=== PATIENT | female | born 1930 | race Caucasian/White ===

== ENCOUNTER 2018-03-19 02:57 | Inpatient (IN) | payer MEDICARE ==
[2018-03-19 03:04] VITALS: BMI 21.9
[2018-03-19 03:27] LABS: BASO # 0.06 K/mm3 (0.0-2.0); BASO % 0.7 % (0.0-3.0); EOS # 0.3 (0.0-0.7); EOS % 3.3 % (1.5-5.0); GRAN # 5.33 (1.4-6.5); GRAN % 64.8 % (50.0-68.0); HEMOGLOBIN 12.4 g/dL (12.0-16.0); LYMPH # 1.8 (1.2-3.4); LYMPH % 21.3 % (22.0-35.0); MEAN CELL VOLUME 80.9 fl (80.0-105.0); MEAN CORPUSCULAR HEMOGLOBIN 26.6 pg (25.0-35.0); MEAN CORPUSCULAR HGB CONC 32.9 g/dl (31.0-37.0); MONO # 0.8 (0.1-0.6); MONO % 9.9 % (1.0-6.0); RBC 4.66 10^6/uL (3.5-6.1); WHITE BLOOD COUNT 8.2 10^3/ul (4.5-11.0)
--- NOTE | 2018-03-19 03:29 | ED PDOC ---
Arrival/HPI - General Chief Complaint: Shortness Of Breath Time Seen by Provider: 03/19/18 03:04 Historian: Patient, Family - History of Present Illness Narrative History of Present Illness (Text): 03/19/18 03:12 Nan Calix is an 88 year old female, whose past medical history includes diabetes, hypercholesterolemia, hysterectomy and bladder suspension, who presents to the Emergency Department complaining of shortness of breath which woke her up tonight. Patient notes some improvement with oxygen. Patient reports she underwent a stress test with abnormal findings suggestive of cardiomyopathy. Patient denies nausea, vomiting, diarrhea, weakness/numbness/ tingling, or any other complaints. Sr. Consultant: Dr. Mason Time/Duration: Prior to Arrival Symptom Onset: Other (intermittent for 1 month) Symptom Course: Improving (from Oxygen) Activities at Onset: Rest Context: Home Past Medical History - Provider Review Nursing Documentation Reviewed: Yes - Travel History Have you recently traveled outside [place] w/in the past 3 mons?: No - Cardiac Hx NE: No - Neurological HX Cerebrovascular Accident: No Hx Transient Ischemic Attacks (TIA): No - HEENT Hx HEENT Disorder: Yes Hx Cataracts: Yes (RAMIRO. REMOVED) Hx Glaucoma: Yes - Endocrine/Metabolic Hx Endocrine Disorders: Yes Hx Diabetes Mellitus Type 2: Yes - Hematological/Oncological Hx Blood Transfusions: No - Musculoskeletal/Rheumatological Hx Musculoskeletal Disorders: Yes Hx Back Pain: Yes Hx Falls: No Hx Fractures: No Hx Osteoarthritis: Yes (HIPS AND LOW BACK) Hx Osteoporosis: Yes Hx Unsteady Gait: No - Gastrointestinal Hx Gastrointestinal Disorders: Yes Hx Gastroesophageal Reflux: Yes - Surgical History Hx Cataract Extraction: Yes (RAMIRO.) Hx Eye Surgery: Yes Hx Hysterectomy: Yes (ESTEBAN) Other/Comment: BLADDER PROLAPSE REPAIR - Anesthesia Hx Anesthesia: Yes Hx Anesthesia Reactions: No Hx Malignant Hyperthermia: No Family/Social History - Physician Review Nursing Documentation Reviewed: Yes Family/Social History: Unknown Family HX Smoking Status: Former Smoker Allergies/Home Meds Allergies/Adverse Reactions: Allergies No Known Allergies Allergy (Verified 08/12/16 06:52) Home Medications: Home Meds Medication Instructions Recorded Confirmed Glipizide [Glipizide ER] 5 mg PO DAILY 06/03/16 08/12/16 Omeprazole 20 mg PO DAILY 06/03/16 08/12/16 Simvastatin [Zocor] 20 mg PO DAILY 06/03/16 08/12/16 Timolol 0.5% Ophth [Timoptic 0.5% 1 drop OS BID 06/03/16 08/12/16 Ophth Soln] metFORMIN [glucOPHAGE] 500 mg PO BID 06/03/16 08/12/16 Aspirin/Caffeine [Anacin 400-32 mg 1 tab PO DAILY PRN 08/12/16 08/12/16 Tablet] Multivit-Min/Iron/Folic/Lutein 1 tab PO DAILY 08/12/16 08/12/16 [Centrum Silver Women Tablet] Review of Systems - Physician Review All systems were reviewed & negative as marked: Yes - Review of Systems Constitutional: Normal Eyes: Normal ENT: Normal Respiratory: SOB. absent: Normal Cardiovascular: absent: Chest Pain Gastrointestinal: Normal. absent: Nausea, Vomiting Musculoskeletal: Normal Skin: Normal Neurological: Normal Endocrine: Normal Physical Exam Vital Signs Reviewed: Yes Vital Signs Temp Pulse Resp BP Pulse Ox 03/19/18 05:28 87 18 131/74 100 03/19/18 04:04 138/80 03/19/18 03:15 20 03/19/18 03:09 97.8 F 89 20 138/80 95 Temperature: Afebrile Blood Pressure: Normal Pulse: Regular Respiratory Rate: Normal Appearance: Positive for: Well-Appearing, Non-Toxic Pain Distress: Mild Mental Status: Positive for: Alert and Oriented X 3 - Systems Exam Head: Present: Atraumatic, Normocephalic Pupils: Present: PERRL Extroacular Muscles: Present: EOMI Conjunctiva: Present: Normal Mouth: Present: Moist Mucous Membranes Respiratory/Chest: Present: Rales (at the bases) Cardiovascular: Present: Regular Rate and Rhythm, Normal S1, S2. No: Murmurs Upper Extremity: Present: Normal Inspection. No: Cyanosis, Edema Lower Extremity: Present: Normal Inspection. No: Edema Neurological: Present: GCS=15, CN II-XII Intact, Speech Normal Skin: Present: Warm, Dry, Normal Color. No: Rashes Psychiatric: Present: Alert, Oriented x 3, Normal Insight, Normal Concentration Medical Decision Making ED Course and Treatment: 03/19/18 03:12 Impression: Nan Calix is an 88 year old female who presents to the Emergency Department for shortness of breath. Plan: -- Labs -- EKG -- BNP -- X-Ray of Chest -- Lasix -- Reassess and disposition Prior Visits: Notes and results from previous visits were reviewed. Progress Notes: EKG reviewed and shows: Normal Sinus Rhythm at 87 bpm. left axis deviation, left bundle branch block. 03/19/18 03:35 Chest X-Ray reviewed, shows mild congestive heart failure. 03/19/18 05:09 Case discussed with medical insurance coding specialist information systems specialist, who is aware and agrees with plan. 03/19/18 05:[address] Leary, who is aware and agrees with plan. Accepts patient into hospital service. Patient will go to telemetry observation for congestive heart failure. - Lab Interpretations Lab Results: 03/19/18 03:10 03/19/18 03:55 Lab Results 03/19/18 03:55: Sodium 143, Chloride 107, Potassium 3.9, Carbon Dioxide 23, Anion Gap 17, BUN 13, Creatinine 0.8, Est GFR ( Amer) > 60, Est GFR (Non- Af Amer) > 60, Random Glucose 181 H, Calcium 9.4, Magnesium 1.9, Total Bilirubin 1.5 H, AST 33, ALT 19, Alkaline Phosphatase 56, Lactate Dehydrogenase 587, Total Creatine Kinase 66, Troponin I 0.03, NT-Pro-B Natriuret Pep 66127 H, Total Protein 7.7, Albumin 3.9, Globulin 3.8, Albumin/Globulin Ratio 1.0 L 03/19/18 03:55: pO2 25 L, VBG pH 7.35, VBG pCO2 44.0, VBG HCO3 24.3, VBG Total CO2 25.7, VBG O2 Sat (Calc) 45.5, VBG Base Excess -1.5 L, VBG Potassium 3.7, Sodium 140.0, Chloride 107.0, Glucose 192 H, Lactate 1.7, FiO2 21.0, Venous Blood Potassium 3.7 03/19/18 03:55: PT 13.8 H, INR 1.21 H, APTT 30.1 03/19/18 03:10: WBC 8.2, RBC 4.66, Hgb 12.4, Hct 37.7, MCV 80.9, MCH 26.6, MCHC 32.9, RDW 16.0 H, Plt Count 229, MPV 11.0, Gran % 64.8, Lymph % (Auto) 21.3 L, Mcdonough % (Auto) 9.9 H, Eos % (Auto) 3.3, Baso % (Auto) 0.7, Gran # 5.33, Lymph # ( Auto) 1.8, Mcdonough # (Auto) 0.8 H, Eos # (Auto) 0.3, Baso # (Auto) 0.06 I have reviewed the lab results: Yes - RAD Interpretation Radiology Orders: 03/19/18 03:16 CHEST PORTABLE [RAD] Stat Needle Valve Operator: ED Physician - EKG Interpretation Interpreted by ED Physician: Yes Type: 12 lead EKG - Medication Orders Current Medication Orders: Discontinued Medications Furosemide (Lasix) 20 mg IVP ONCE ONE Stop: 03/19/18 03:34 Last Admin: 03/19/18 04:04 Dose: 20 mg MAR Blood Pressure Document 03/19/18 04:04 JOL (Rec: 03/19/18 04:04 [id number] Blood Pressure Blood Pressure (100/60-150/90) 138/80 IVP Administration Document 03/19/18 04:04 JOL (Rec: 03/19/18 04:04 JO [id number]) Charges for Administration # of IVP Administrations 1 - Scribe Statement The provider has reviewed the documentation as recorded by the Scribe Linda Rosales, under the training of Kenyatta Marion. All medical record entries made by the Scribe were at my direction and personally dictated by me. I have reviewed the chart and agree that the record accurately reflects my personal performance of the history, physical exam, medical decision making, and the department course for this patient. I have also personally directed, reviewed, and agree with the discharge instructions and disposition. Disposition/Present on Arrival - Present on Arrival Any Indicators Present on Arrival: No History of DVT/PE: No History of Uncontrolled Diabetes: No Urinary Catheter: No History of Decub. Ulcer: No History Surgical Site Infection Following: None - Disposition Have Diagnosis and Disposition been Completed?: Yes Diagnosis: Congestive heart failure (CHF) Disposition: HOSPITALIZED Disposition Time: 05:00 Condition: FAIR
[2018-03-19 04:04] LABS: VENOUS BLOOD GAS BASE EXCESS -1.5 mmol/L (0.0-2.0); VENOUS BLOOD GAS PO2 25 mm/Hg (30-55); VENOUS BLOOD PH 7.35 (7.32-7.43)
[2018-03-19 04:17] LABS: INR 1.21 (0.93-1.08); PROTHROMBIN TIME 13.8 SECONDS (9.4-12.5)
[2018-03-19 04:18] LABS: PARTIAL THROMBOPLASTIN TIME 30.1 Seconds (25.1-36.5)
[2018-03-19 05:05] LABS: ALBUMIN 3.9 g/dL (3.0-4.8); ALT/SGPT 19 U/L (7-56); AST/SGOT 33 U/L (14-36); BLOOD UREA NITROGEN 13 mg/dL (7-21); CALCIUM 9.4 mg/dL (8.4-10.5); GFR AFRICAN-AMERICAN > 60; GFR NON-AFRICAN AMERICAN > 60
[2018-03-19 05:33] LABS: B-TYPE NATRIURETIC PEPTIDE 10300 pg/mL (0-450); TROPONIN I 0.03 ng/mL
[2018-03-19 07:17] LABS: HDL CHOLESTEROL 46 mg/dL (29-60)
--- NOTE | 2018-03-19 07:19 | RAD ---
Date of service: 03/19/2018 HISTORY: sob COMPARISON: 03/18/2018 FINDINGS: LUNGS: No active pulmonary disease. PLEURA: No significant pleural effusion identified, no pneumothorax apparent. CARDIOVASCULAR: Moderate cardiomegaly. Moderate vascular congestion OSSEOUS STRUCTURES: No significant abnormalities. VISUALIZED UPPER ABDOMEN: Normal. OTHER FINDINGS: None. IMPRESSION: Moderate cardiomegaly and moderate vascular congestion
[2018-03-19 07:28] LABS: LDL CHOLESTEROL 97 mg/dL (0-129)
[2018-03-19] MEDS: Insulin Reg-LOW-Coverage SC SCH ×4 (08:35→22:49)
--- NOTE | 2018-03-19 09:38 | CP.PCM.HP ---
History of Present Illness - History of Present Illness History of Present Illness: 88 F w/ PMH DM, HLD, presents to [facility] ED on 03/19 AM w/ CC of SOB. Pt. reported she had a echo /stress test on 03/18 day and came into ED this AM because she was awoken from her sleep w/ shortness of breath. Of note preliminary report of echo shows EF of 13.8%. Pt. reports that these episodes have been occurring over the past 2-3 months, however today the episode was the worst that it's been. She says that over the past months she has also been having worsening PERKINS and has seen a reduction in ability to perform ADLs due to worsening symptoms. Pt denies any new onset lower extremity edema, sleeping in an elevated position , denies any weight gain. She does report some palpitations however describes it further as a racing sensation. Upon further ROS denies any NAVAS, BV, Cough, Abd pain, N/V/D, Urinary changes, LE numbness/ tingling, weakness. Remainder of 12 system ROS otherwise negative. PMD: Dr. Chaves, J Pharm: Serge Whitehead PMH: as above PSH: Appendectomy Social: Denies EtOH, Denies Tobacco, Denies Illicit, Lives w/ daughter and ambulates well Home Rx: Metformin, Zocor, Omeprazole, Glipizide, In ED: CBC nl CMP wnl CXR - Moderate cardiomegaly; Moderate vascular congestion BMP 10,000 Troponin negative EKG: NSR w/ Laxis deviation + LBBB Given x1 Lasix 20mg IVP Present on Admission - Present on Admission Any Indicators Present on Admission: No Review of Systems - Constitutional Constitutional: As Per HPI - EENT Eyes: As Per HPI - Cardiovascular Cardiovascular: As Per HPI - Respiratory Respiratory: As Per HPI - Gastrointestinal Gastrointestinal: As Per HPI - Genitourinary Genitourinary: As Per HPI - Musculoskeletal Musculoskeletal: As Per HPI - Integumentary Integumentary: As Per HPI - Neurological Neurological: As Per HPI - Psychiatric Psychiatric: As Per HPI - Endocrine Endocrine: As Per HPI - Hematologic/Lymphatic Hematologic: As Per HPI Past Patient History - Past Medical History & Family History Past Medical History?: Yes - Past Social History Smoking Status: Former Smoker - CARDIAC Hx Heart Attack: No - NEUROLOGICAL HX Cerebrovascular Accident: No Hx Transient Ischemic Attacks (TIA): No - HEENT Hx HEENT Problems: Yes Hx Cataracts: Yes (RAMIRO. REMOVED) Hx Glaucoma: Yes - ENDOCRINE/METABOLIC Hx Endocrine Disorders: Yes Hx Diabetes Mellitus Type 2: Yes - HEMATOLOGICAL/ONCOLOGICAL Hx Blood Transfusions: No - MUSCULOSKELETAL/RHEUMATOLOGICAL Hx Musculoskeletal Disorders: Yes Hx Back Pain: Yes Hx Falls: No Hx Fractures: No Hx Osteoarthritis: Yes (HIPS AND LOW BACK) Hx Osteoporosis: Yes Hx Unsteady Gait: No - GASTROINTESTINAL Hx Gastrointestinal Disorders: Yes Hx Gastroesophageal Reflux: Yes - PSYCHIATRIC Hx Substance Use: No - SURGICAL HISTORY Hx Cataract Extraction: Yes (RAMIRO.) Hx Eye Surgery: Yes Hx Hysterectomy: Yes (ESTEBAN) Other/Comment: BLADDER PROLAPSE REPAIR - ANESTHESIA Hx Anesthesia: Yes Hx Anesthesia Reactions: No Hx Malignant Hyperthermia: No Meds Allergies/Adverse Reactions: Allergies Allergy/AdvReac Type Severity Reaction Status Date / Time No Known Allergies Allergy Verified 08/12/16 06:52 Physical Exam - Constitutional Appears: Well, Non-toxic, No Acute Distress - Head Exam Head Exam: ATRAUMATIC, NORMOCEPHALIC - Eye Exam Eye Exam: EOMI, Normal appearance, PERRL - ENT Exam ENT Exam: Mucous Membranes Moist, Normal Exam - Neck Exam Additional comments: No carotid bruit - Respiratory Exam Respiratory Exam: absent: Wheezes, Respiratory Distress Additional comments: Crackles appreciated Bibasilar - Cardiovascular Exam Cardiovascular Exam: RRR, +S1, +S2. absent: Systolic Murmur - GI/Abdominal Exam GI & Abdominal Exam: Normal Bowel Sounds, Soft. absent: Tenderness - Extremities Exam Extremities exam: Positive for: pedal pulses present (2+ TP/DP) - Back Exam Back exam: absent: CVA tenderness (L), CVA tenderness (R) - Neurological Exam Neurological exam: Alert, CN II-XII Intact, Oriented x3 - Psychiatric Exam Psychiatric exam: Normal Affect, Normal Mood - Skin Skin Exam: Dry, Intact, Warm Results - Vital Signs Recent Vital Signs: Last Vital Signs Temp 98.3 F 03/19/18 06:07 Pulse 80 03/19/18 06:07 Resp 20 03/19/18 06:07 BP 142/85 03/19/18 06:07 Pulse Ox 100 03/19/18 05:28 - Labs Result Diagrams: 03/19/18 03:10 03/19/18 03:55 Assessment & Plan - Assessment and Plan (Free Text) Assessment: 88 F w/ PMH DM, HLD, preliminary findings HFrEF 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 SOB 2/2 CHF Exacerbation BMP 10,000; Echo w/ preliminary reading of 13.8%; Started patient on lisinopril 5mg QD Started Lasix 5mg PO QD Monitor IO/ Daily weight Limited salt diet; Fluid restriction 1.5L Cardiology - Dr. Mason - Consulted Telemonitoring HLD Continue Home Simvastatin Lipid panel wnl DM: ISS Regular Accucheck Q6 A1C pending Pt seen, and case discussed w/ attending physician Dr. Leary at length; Sanchez Interiano DO PGY1 Internal Medicine [employer] Systems Operator - Date & Time Date: 03/19/18 Time: 10:27
--- NOTE | 2018-03-19 09:39 | CARD ---
APPROVED REPORT Date of service: 03/19/2018 EKG Measurement Heart [id number] <Conclusion> Normal sinus rhythm Possible Left atrial enlargement Left axis deviation Left bundle branch block Abnormal ECG
[2018-03-19] MEDS: Milrinone 20mg/100ml D5W 100 ML IV PRN (10:41)
--- NOTE | 2018-03-19 12:18 | CON ---
DATE: 03/19/2018 HISTORY: The patient is an 88-year-old woman who presents with sudden onset of shortness of breath. PAST MEDICAL HISTORY: The patient's past medical history includes diabetes mellitus, hypercholesterolemia. She underwent recent cardiac workup which included an abnormal stress test with a documented ejection fraction of 10%. The patient denies angina, but admits to shortness of breath. No edema in the lower extremities. SOCIAL HISTORY: The patient does not smoke. REVIEW OF SYSTEMS: A 14-point review of systems is reviewed. Positive exertional shortness of breath. No angina, negative edema. Positive orthopnea. Positive PND. No previous myocardial infarction noted. PHYSICAL EXAMINATION: VITAL SIGNS: Blood pressure is 142/85, heart rates in the 80s. NECK: Negative JVD. LUNGS: Decreased breath sounds with crackles. HEART: Reveal S1, S2. EXTREMITIES: Without edema. EKG shows no changes from her previous. Hemoglobin is 12.4. ProBNP is greater than 10,000, troponin is 0.03, BUN and creatinine are unremarkable with glucose of 181. IMPRESSION 1. Acute systolic congestive heart failure. 2. End-stage dilated cardiomyopathy. 3. Diabetes mellitus. 4. Hypercholesterolemia. 5. Dyspnea. Given these findings, we will give her IV Lasix. In addition, we will add intravenous milrinone to her regimen to improve her symptoms as well as her forwarded cardiac output. Malcolm Mason MD
[2018-03-20] MEDS: Milrinone 20mg/100ml D5W 100 ML IV PRN (01:06)
[2018-03-20 06:55] LABS: BASO # 0.04 K/mm3 (0.0-2.0); BASO % 0.5 % (0.0-3.0); EOS # 0.4 (0.0-0.7); EOS % 4.6 % (1.5-5.0); GRAN # 5.16 (1.4-6.5); GRAN % 62.6 % (50.0-68.0); HEMOGLOBIN 11.7 g/dL (12.0-16.0); LYMPH # 1.8 (1.2-3.4); LYMPH % 21.8 % (22.0-35.0); MEAN CELL VOLUME 81.7 fl (80.0-105.0); MEAN CORPUSCULAR HEMOGLOBIN 26.2 pg (25.0-35.0); MEAN CORPUSCULAR HGB CONC 32.1 g/dl (31.0-37.0); MEAN PLATELET VOLUME 10.2 fl (7.0-11.0); MONO # 0.9 (0.1-0.6); MONO % 10.5 % (1.0-6.0); RBC 4.47 10^6/uL (3.5-6.1); WHITE BLOOD COUNT 8.3 10^3/ul (4.5-11.0)
[2018-03-20 07:05] LABS: ALB/GLOB RATIO 1.1 (1.1-1.8); ALBUMIN 3.6 g/dL (3.0-4.8); ALT/SGPT 24 U/L (7-56); AST/SGOT 27 U/L (14-36); BLOOD UREA NITROGEN 19 mg/dL (7-21); CALCIUM 9.4 mg/dL (8.4-10.5); GFR AFRICAN-AMERICAN > 60; GFR NON-AFRICAN AMERICAN 59
[2018-03-20] MEDS: Insulin Reg-LOW-Coverage SC SCH ×4 (08:05→21:27)
[2018-03-20] MEDS: Potassium Chloride 40 mEq/30 ml LIQ UD PO SCH ×3 (08:09→16:44)
[2018-03-20] MEDS ORDERED: Magnesium Oxide 400 mg Tab UD PO ONE (10:29)
--- NOTE | 2018-03-20 10:52 | PN ---
DATE: 03/20/2018 CARDIOLOGY FOLLOWUP FOLLOWUP: The patient's breathing is much improved on IV milrinone. PHYSICAL EXAMINATION: VITAL SIGNS: Blood pressure is 103/57, heart rate is in the 80s. NECK: Negative JVD. LUNGS: Without rales. HEART: Reveals S1, S2. EXTREMITIES: Without edema. LABORATORY DATA: Hemoglobin is 11.7. Chemistries: BUN and creatinine are normal. Potassium is 3.3, which has been replaced. The glucose is 134. IMPRESSION: 1. Resolution of congestive heart failure. 2. Severe dilated cardiomyopathy. 3. Abnormal stress test. 4. Diabetes mellitus. 5. Hypercholesterolemia. 6. Resolution of dyspnea. PLAN: Given these findings, we will discontinue her milrinone. We will change the medications to p.o. medications. From a cardiac perspective, the patient can be discharged. We will bring her back early next week for an outpatient catheterization to evaluate her coronary arteries with potential plans for a defibrillator placement. Malcolm Mason MD
--- NOTE | 2018-03-20 17:22 | CP.PCM.PN ---
<Eleno Lewis - Last Filed: 03/20/18 21:40> Subjective - Date & Time of Evaluation Date of Evaluation: 03/20/18 Time of Evaluation: 06:10 - Subjective Subjective: Eleno Lewis PGY-1 Progress Note for Hospitalist Service Patient seen and examined at bedside. Denies any acute events overnight. Patient denies CP, palpitations, SOB. Patient experienced a few beats of SVT per telemetry but patient remained asymptomatic at that time. Objective - Vital Signs/Intake and Output Vital Signs (last 24 hours): Temp Pulse Resp BP Pulse Ox 98.2 F 84 18 118/65 96 03/20/18 12:00 03/20/18 12:00 03/20/18 12:00 03/20/18 12:00 03/20/18 09:00 Intake and Output: 03/20/18 03/20/18 06:59 18:59 Intake Total 340 Balance 340 - Medications Medications: Current Medications Aspirin (Aspirin Chewable) 81 mg PO DAILY [facility] Last Admin: 03/20/18 11:30 Dose: 81 mg Atorvastatin Calcium (Lipitor) 10 mg PO DIN [facility] Last Admin: 03/20/18 16:44 Dose: 10 mg Docusate Sodium (Colace) 100 mg PO DAILY [facility] Last Admin: 03/20/18 11:30 Dose: 100 mg Furosemide (Lasix) 20 mg PO DAILY [facility] Last Admin: 03/20/18 10:27 Dose: Not Given Insulin Human Regular (Humulin R Low) 0 units SC [facility] PRN Reason: Protocol Last Admin: 03/20/18 16:53 Dose: Not Given Lisinopril (Zestril) 5 mg PO DAILY [facility] Last Admin: 03/20/18 09:22 Dose: 5 mg - Labs Labs: 03/20/18 06:30 03/20/18 05:20 PT 13.8 SECONDS (9.4-12.5) H 03/19/18 03:55 INR 1.21 (0.93-1.08) H 03/19/18 03:55 APTT 30.1 Seconds (25.1-36.5) 03/19/18 03:55 - Constitutional Appears: Well, No Acute Distress - Head Exam Head Exam: ATRAUMATIC, NORMOCEPHALIC - Eye Exam Eye Exam: EOMI, Normal appearance Pupil Exam: NORMAL ACCOMODATION, PERRL - ENT Exam ENT Exam: Mucous Membranes Moist - Neck Exam Neck Exam: Normal Inspection - Respiratory Exam Additional comments: minor LLQ crackles - Cardiovascular Exam Cardiovascular Exam: RRR, +S1, +S2 - GI/Abdominal Exam GI & Abdominal Exam: Soft, Normal Bowel Sounds. absent: Guarding, Tenderness - Neurological Exam Neurological Exam: Alert, Awake, Normal Gait, Oriented x3 - Psychiatric Exam Psychiatric exam: Normal Affect, Normal Mood - Skin Skin Exam: Dry, Normal Color, Warm Assessment and Plan - Assessment and Plan (Free Text) Assessment: Ms. Calix is a 88 year old F w/ PMH of DM, HLD, HFrEF w/ EF 13% who presented yesterday with shortness of breath and weakness. SOB 2/2 CHF Exacerbation BMP >10,000; Echo shows EF of 13% Started patient on lisinopril 5mg QD Monitor I/O/ Daily weight to monitor for CHF exacerbation clinical signs Limited salt diet; Fluid restriction IV Milrinone discontinued. Lasix 20 mg PO Cardiology - Dr. Mason - Consulted. Recommended to start PO medications in preparation for discharge. cardio will consider outpatient cath. with potential defibrillator placement - no longer on telemetry continue ASA - f/u CBC in AM Hypokalemia - 3.3 on CMP today - repleted with KCl 40 mEq. Will evaluate with f/u CMP in AM Constipation Patient denies BM in last few days. Began on colace 100. will monitor HLD Continue Home Simvastatin DM: ISS Regular Accucheck Q6 A1C pending Disposition: PT, OT, and SW consults in place for unsteady gait and placement. Discussed with case management. Will remain on med-surg floors due to unsteady gait and will re-evaluate tomorrow. Patient seen, case reviewed, and plan agreed upon with Dr. Renetta Nevarez. Eleno Lewis, PGY-1 <Layo Nevarez - Last Filed: 03/21/18 07:54> Objective - Vital Signs/Intake and Output Vital Signs (last 24 hours): Temp Pulse Resp BP Pulse Ox 98.9 F 81 19 106/64 96 03/20/18 17:33 03/20/18 17:33 03/20/18 17:33 03/20/18 17:33 03/20/18 17:33 - Medications Medications: Current Medications Aspirin (Aspirin Chewable) 81 mg PO DAILY [facility] Last Admin: 03/20/18 11:30 Dose: 81 mg Atorvastatin Calcium (Lipitor) 10 mg PO DIN [facility] Last Admin: 03/20/18 16:44 Dose: 10 mg Docusate Sodium (Colace) 100 mg PO DAILY [facility] Last Admin: 03/20/18 11:30 Dose: 100 mg Furosemide (Lasix) 20 mg PO DAILY [facility] Last Admin: 03/20/18 10:27 Dose: Not Given Insulin Human Regular (Humulin R Low) 0 units SC [facility] PRN Reason: Protocol Last Admin: 03/20/18 21:27 Dose: Not Given Lisinopril (Zestril) 5 mg PO DAILY [facility] Last Admin: 03/20/18 09:22 Dose: 5 mg - Labs Labs: 03/20/18 06:30 03/20/18 05:20 PT 13.8 SECONDS (9.4-12.5) H 03/19/18 03:55 INR 1.21 (0.93-1.08) H 03/19/18 03:55 APTT 30.1 Seconds (25.1-36.5) 03/19/18 03:55 Attending/Attestation - Attestation I have personally seen and examined this patient.: Yes I have fully participated in the care of the patient.: Yes I have reviewed all pertinent clinical information, including history, physical exam and plan: Yes Notes (Text): 03/20/18 88 year old female with past medical history of diabetes and dyslipidemia who presented with complaint of shortness of breath. She had a recent outpatient stress test / echo which showed cardiomyopathy with EF of 13%. CXR showed moderate congestion. Patient was started on iv lasix and milrinone drip with improvement of symptoms. She is also on lisinopril. Cardiology is following and switched lasix to po. Milrinone drip is discontinued. Cardiology recommended elective cardiac cath next week. Will replete and repeat lytes (potassium). PT evaluation was appreciated who recommended TCU. However patient and family have refused TCU. Will request PT followup with possible plan to d/c home with services in the weekend if her gait instability improves. Layo Nevarez MD Hospitalist.
[2018-03-21 08:21] LABS: HEMOGLOBIN 12.6 g/dL (12.0-16.0); MEAN CELL VOLUME 83.4 fl (80.0-105.0); MEAN CORPUSCULAR HEMOGLOBIN 26.8 pg (25.0-35.0); RBC 4.7 10^6/uL (3.5-6.1); WHITE BLOOD COUNT 6.7 10^3/ul (4.5-11.0)
[2018-03-21 08:22] LABS: BASO # 0.05 K/mm3 (0.0-2.0); BASO % 0.7 % (0.0-3.0); EOS # 0.4 (0.0-0.7); EOS % 5.9 % (1.5-5.0); GRAN # 3.92 (1.4-6.5); GRAN % 58.3 % (50.0-68.0); LYMPH # 1.5 (1.2-3.4); MEAN CORPUSCULAR HGB CONC 32.1 g/dl (31.0-37.0); MEAN PLATELET VOLUME 11.1 fl (7.0-11.0); MONO # 0.9 (0.1-0.6); MONO % 13.1 % (1.0-6.0); RED CELL DISTRIBUTION WIDTH 16.4 % (11.5-14.5)
[2018-03-21 08:24] LABS: ALB/GLOB RATIO 1.1 (1.1-1.8); ALT/SGPT 18 U/L (7-56); AST/SGOT 29 U/L (14-36); BLOOD UREA NITROGEN 19 mg/dL (7-21); CALCIUM 9.8 mg/dL (8.4-10.5); GFR AFRICAN-AMERICAN > 60; GFR NON-AFRICAN AMERICAN > 60
[2018-03-21] MEDS: Insulin Reg-LOW-Coverage SC SCH ×3 (09:02→16:48)
--- NOTE | 2018-03-21 16:03 | PN ---
DATE: 03/21/2018 REASON FOR DICTATION: Covering for Dr. Malcolm Mason. REASON FOR CONSULTATION: Dilated cardiomyopathy, severely decreased LV function and acute decompensated congestive heart failure, improving. SUBJECTIVE: The patient denies any chest pain, shortness of breath or any palpitations. PHYSICAL EXAMINATION: GENERAL: The patient not in apparent distress, lying flat on the bed. VITAL SIGNS: Temperature afebrile, heart rate 82, blood pressure 106/64. HEENT: PERRLA. Extraocular muscles intact. NECK: Supple. No carotid bruit or thyromegaly. CHEST: Clear to auscultation. HEART: S1, S2 regular. ABDOMEN: Soft. EXTREMITIES: Clubbing and cyanosis negative. LABORATORY DATA: Blood workup as follows: WBC 6.3, hemoglobin , hematocrit 39.2, platelet count 223. Chemistry shows sodium 143, potassium 4.2, chloride 105, carbon dioxide 27, anion gap of 16, BUN 19, creatinine 0.8. IMPRESSION: Acute decompensated congestive heart failure, chronic congestive heart failure secondary to systolic dysfunction, severe dilated cardiomyopathy, abnormal stress test, rule out ischemia, diabetes, hyperlipidemia, resolution of dyspnea. RECOMMENDATIONS: Continue aspirin, continue Lasix, continue atorvastatin and continue lisinopril. The patient is not on beta maynor because of bradycardia; at one point, had heart block; recommended cardiac catheterization and probably AICD. Once the AICD is placed, we will put low-dose beta maynor. We will follow with you. The patient is not on spironolactone because the potassium is up. If the potassium goes down and can be tolerated, we will resume back spironolactone. We will transfer care on Friday to Dr. Mason. We will repeat the labs in the morning. Thank you, Dr. Nevarez, for providing us the opportunity in taking care of the patient, Nan Calix. Jerry Raman MD
--- NOTE | 2018-03-21 17:24 | CP.PCM.DIS ---
<Eleno Lewis - Last Filed: 03/21/18 17:41> Provider - Provider Date of Admission: 03/19/18 10:47 Attending physician: Layo Nevarez MD Primary care physician: Oscar Chaves DO Consults: Cardiology- Dr. Raman Time Spent in preparation of Discharge (in minutes): 45 Diagnosis - Discharge Diagnosis (1) Diabetes Status: Chronic (2) Dyslipidemia Status: Chronic Hospital Course - Lab Results Lab Results: Most Recent Lab Values WBC 6.7 10^3/ul (4.5-11.0) 03/21/18 07:00 RBC 4.70 10^6/uL (3.5-6.1) 03/21/18 07:00 Hgb 12.6 g/dL (12.0-16.0) 03/21/18 07:00 Hct 39.2 % (36.0-48.0) 03/21/18 07:00 MCV 83.4 fl (80.0-105.0) 03/21/18 07:00 MCH 26.8 pg (25.0-35.0) 03/21/18 07:00 MCHC 32.1 g/dl (31.0-37.0) 03/21/18 07:00 RDW 16.4 % (11.5-14.5) H 03/21/18 07:00 Plt Count 223 10^3/uL (120.0-450.0) 03/21/18 07:00 MPV 11.1 fl (7.0-11.0) H 03/21/18 07:00 Gran % 58.3 % (50.0-68.0) 03/21/18 07:00 Lymph % (Auto) 22.0 % (22.0-35.0) 03/21/18 07:00 Sibley % (Auto) 13.1 % (1.0-6.0) H 03/21/18 07:00 Eos % (Auto) 5.9 % (1.5-5.0) H 03/21/18 07:00 Baso % (Auto) 0.7 % (0.0-3.0) 03/21/18 07:00 Gran # 3.92 (1.4-6.5) 03/21/18 07:00 Lymph # (Auto) 1.5 (1.2-3.4) 03/21/18 07:00 Sibley # (Auto) 0.9 (0.1-0.6) H 03/21/18 07:00 Eos # (Auto) 0.4 (0.0-0.7) 03/21/18 07:00 Baso # (Auto) 0.05 K/mm3 (0.0-2.0) 03/21/18 07:00 PT 13.8 SECONDS (9.4-12.5) H 03/19/18 03:55 INR 1.21 (0.93-1.08) H 03/19/18 03:55 APTT 30.1 Seconds (25.1-36.5) 03/19/18 03:55 pO2 25 mm/Hg (30-55) L 03/19/18 03:55 VBG pH 7.35 (7.32-7.43) 03/19/18 03:55 VBG pCO2 44.0 (40-60) 03/19/18 03:55 VBG HCO3 24.3 mmol/l (21-28) 03/19/18 03:55 VBG Total CO2 25.7 mmol.L (22-28) 03/19/18 03:55 VBG O2 Sat (Calc) 45.5 % (40-65) 03/19/18 03:55 VBG Base Excess -1.5 mmol/L (0.0-2.0) L 03/19/18 03:55 VBG Potassium 3.7 mmol/L (3.6-5.2) 03/19/18 03:55 Sodium 140.0 mmol/L (132-148) 03/19/18 03:55 Chloride 107.0 mmol/L (98-107) 03/19/18 03:55 Glucose 192 mg/dl (65-105) H 03/19/18 03:55 Lactate 1.7 mmol/L (0.7-2.1) 03/19/18 03:55 FiO2 21.0 % 03/19/18 03:55 Sodium 143 mmol/L (132-148) 03/21/18 07:00 Potassium 4.8 mmol/L (3.6-5.0) 03/21/18 07:00 Chloride 105 mmol/L (98-107) 03/21/18 07:00 Carbon Dioxide 27 mmol/L (21-33) 03/21/18 07:00 Anion Gap 16 (10-20) 03/21/18 07:00 BUN 19 mg/dL (7-21) 03/21/18 07:00 Creatinine 0.8 mg/dl (0.7-1.2) 03/21/18 07:00 Est GFR ( Amer) > 60 03/21/18 07:00 Est GFR (Non-Af Amer) > 60 03/21/18 07:00 POC Glucose (mg/dL) 127 mg/dL (65-110) H 03/21/18 07:50 Random Glucose 128 mg/dL (70-110) H 03/21/18 07:00 Hemoglobin A1c 7.0 % (4.2-6.5) H 03/19/18 03:55 Calcium 9.8 mg/dL (8.4-10.5) 03/21/18 07:00 Magnesium 1.8 mg/dL (1.7-2.2) 03/20/18 05:20 Total Bilirubin 1.4 mg/dL (0.2-1.3) H 03/21/18 07:00 AST 29 U/L (14-36) 03/21/18 07:00 ALT 18 U/L (7-56) 03/21/18 07:00 Alkaline Phosphatase 57 U/L (38-126) 03/21/18 07:00 Lactate Dehydrogenase 587 U/L (333-699) 03/19/18 03:55 Total Creatine Kinase 66 U/L (35-230) 03/19/18 03:55 Troponin I 0.03 ng/mL 03/19/18 03:55 NT-Pro-B Natriuret Pep 39772 pg/mL (0-450) H 03/19/18 03:55 Total Protein 7.5 g/dL (5.8-8.3) 03/21/18 07:00 Albumin 4.0 g/dL (3.0-4.8) 03/21/18 07:00 Globulin 3.5 gm/dL 03/21/18 07:00 Albumin/Globulin Ratio 1.1 (1.1-1.8) 03/21/18 07:00 Triglycerides 78 mg/dL (35-160) 03/19/18 03:55 Cholesterol 180 mg/dL (130-200) 03/19/18 03:55 LDL Cholesterol Direct 97 mg/dL (0-129) 03/19/18 03:55 HDL Cholesterol 46 mg/dL (29-60) 03/19/18 03:55 Venous Blood Potassium 3.7 mmol/L (3.6-5.2) 03/19/18 03:55 - Hospital Course Hospital Course: 88 year old female with past medical history of diabetes and dyslipidemia who presented with complaint of shortness of breath. Recent outpatient stress test was performed, as well as an echocardiogram which showed cardiomyopathy with EF of 13%. CXR showed moderate congestion. Patient was started on IV lasix and milrinone drip with improvement of symptoms per cardiology recommendations. She was also on lisinopril. Lasix IV was switched to PO route and Milrinone drip was discontinued, and cardiology recommended elective cardiac catheterization next week. Physical therapy originally recommended TCU placement, but patient and family refused TCU at that time. On day of discharge, PT evaluated and said patient was ready to be sent home with rolling walker and home services. 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 All outstanding questions were addressed and answered. Patient and family were agreeable. Discharge Exam - Head Exam Head Exam: ATRAUMATIC, NORMAL INSPECTION, NORMOCEPHALIC - Eye Exam Eye Exam: EOMI, Normal appearance Pupil Exam: NORMAL ACCOMODATION - Neck Exam Neck exam: Normal Inspection - Respiratory Exam Respiratory Exam: NORMAL BREATHING PATTERN, UNREMARKABLE - Cardiovascular Exam Cardiovascular Exam: RRR, +S1, +S2 - GI/Abdominal Exam GI & Abdominal Exam: Normal Bowel Sounds. absent: Distended, Guarding, Rebound - Neurological Exam Neurological exam: Alert, Oriented x3 - Psychiatric Exam Psychiatric exam: Normal Affect, Normal Mood - Skin Skin Exam: Dry, Intact Discharge Plan - Follow Up Plan Condition: FAIR Disposition: HOME/ ROUTINE Instructions: Heart Failure (DC), Pacemaker (DC), Pulmonary Edema (DC), Ascites (DC) Additional Instructions: 1. Please take your medications as prescribed. 2. Please follow up for an elective cardiac catheterization procedure on Friday with Dr. Mason. 3. Please follow up outpatient with Dr. Chaves within 1 week after procedure. 4. Should symptoms return or worsen, please come to your nearest Emergency Department. Referrals: Oscar Chaves DO [Primary Care Provider] - <Layo Nevarez - Last Filed: 03/22/18 08:41> Provider - Provider Date of Admission: 03/19/18 10:47 Attending physician: Layo Nevarez MD Primary care physician: Oscar Chaves DO Hospital Course - Lab Results Lab Results: Most Recent Lab Values WBC 6.7 10^3/ul (4.5-11.0) 03/21/18 07:00 RBC 4.70 10^6/uL (3.5-6.1) 03/21/18 07:00 Hgb 12.6 g/dL (12.0-16.0) 03/21/18 07:00 Hct 39.2 % (36.0-48.0) 03/21/18 07:00 MCV 83.4 fl (80.0-105.0) 03/21/18 07:00 MCH 26.8 pg (25.0-35.0) 03/21/18 07:00 MCHC 32.1 g/dl (31.0-37.0) 03/21/18 07:00 RDW 16.4 % (11.5-14.5) H 03/21/18 07:00 Plt Count 223 10^3/uL (120.0-450.0) 03/21/18 07:00 MPV 11.1 fl (7.0-11.0) H 03/21/18 07:00 Gran % 58.3 % (50.0-68.0) 03/21/18 07:00 Lymph % (Auto) 22.0 % (22.0-35.0) 03/21/18 07:00 Sibley % (Auto) 13.1 % (1.0-6.0) H 03/21/18 07:00 Eos % (Auto) 5.9 % (1.5-5.0) H 03/21/18 07:00 Baso % (Auto) 0.7 % (0.0-3.0) 03/21/18 07:00 Gran # 3.92 (1.4-6.5) 03/21/18 07:00 Lymph # (Auto) 1.5 (1.2-3.4) 03/21/18 07:00 Sibley # (Auto) 0.9 (0.1-0.6) H 03/21/18 07:00 Eos # (Auto) 0.4 (0.0-0.7) 03/21/18 07:00 Baso # (Auto) 0.05 K/mm3 (0.0-2.0) 03/21/18 07:00 PT 13.8 SECONDS (9.4-12.5) H 03/19/18 03:55 INR 1.21 (0.93-1.08) H 03/19/18 03:55 APTT 30.1 Seconds (25.1-36.5) 03/19/18 03:55 pO2 25 mm/Hg (30-55) L 03/19/18 03:55 VBG pH 7.35 (7.32-7.43) 03/19/18 03:55 VBG pCO2 44.0 (40-60) 03/19/18 03:55 VBG HCO3 24.3 mmol/l (21-28) 03/19/18 03:55 VBG Total CO2 25.7 mmol.L (22-28) 03/19/18 03:55 VBG O2 Sat (Calc) 45.5 % (40-65) 03/19/18 03:55 VBG Base Excess -1.5 mmol/L (0.0-2.0) L 03/19/18 03:55 VBG Potassium 3.7 mmol/L (3.6-5.2) 03/19/18 03:55 Sodium 140.0 mmol/L (132-148) 03/19/18 03:55 Chloride 107.0 mmol/L (98-107) 03/19/18 03:55 Glucose 192 mg/dl (65-105) H 03/19/18 03:55 Lactate 1.7 mmol/L (0.7-2.1) 03/19/18 03:55 FiO2 21.0 % 03/19/18 03:55 Sodium 143 mmol/L (132-148) 03/21/18 07:00 Potassium 4.8 mmol/L (3.6-5.0) 03/21/18 07:00 Chloride 105 mmol/L (98-107) 03/21/18 07:00 Carbon Dioxide 27 mmol/L (21-33) 03/21/18 07:00 Anion Gap 16 (10-20) 03/21/18 07:00 BUN 19 mg/dL (7-21) 03/21/18 07:00 Creatinine 0.8 mg/dl (0.7-1.2) 03/21/18 07:00 Est GFR ( Amer) > 60 03/21/18 07:00 Est GFR (Non-Af Amer) > 60 03/21/18 07:00 POC Glucose (mg/dL) 127 mg/dL (65-110) H 03/21/18 07:50 Random Glucose 128 mg/dL (70-110) H 03/21/18 07:00 Hemoglobin A1c 7.0 % (4.2-6.5) H 03/19/18 03:55 Calcium 9.8 mg/dL (8.4-10.5) 03/21/18 07:00 Magnesium 1.8 mg/dL (1.7-2.2) 03/20/18 05:20 Total Bilirubin 1.4 mg/dL (0.2-1.3) H 03/21/18 07:00 AST 29 U/L (14-36) 03/21/18 07:00 ALT 18 U/L (7-56) 03/21/18 07:00 Alkaline Phosphatase 57 U/L (38-126) 03/21/18 07:00 Lactate Dehydrogenase 587 U/L (333-699) 03/19/18 03:55 Total Creatine Kinase 66 U/L (35-230) 03/19/18 03:55 Troponin I 0.03 ng/mL 03/19/18 03:55 NT-Pro-B Natriuret Pep 40415 pg/mL (0-450) H 03/19/18 03:55 Total Protein 7.5 g/dL (5.8-8.3) 03/21/18 07:00 Albumin 4.0 g/dL (3.0-4.8) 03/21/18 07:00 Globulin 3.5 gm/dL 03/21/18 07:00 Albumin/Globulin Ratio 1.1 (1.1-1.8) 03/21/18 07:00 Triglycerides 78 mg/dL (35-160) 03/19/18 03:55 Cholesterol 180 mg/dL (130-200) 03/19/18 03:55 LDL Cholesterol Direct 97 mg/dL (0-129) 03/19/18 03:55 HDL Cholesterol 46 mg/dL (29-60) 03/19/18 03:55 Venous Blood Potassium 3.7 mmol/L (3.6-5.2) 03/19/18 03:55 Attending/Attestation - Attestation I have personally seen and examined this patient.: Yes I have fully participated in the care of the patient.: Yes I have reviewed all pertinent clinical information, including history, physical exam and plan: Yes Notes (Text): 03/21/18 88 year old female with past medical history of diabetes and dyslipidemia who presented with complaint of dyspnea on exertion. She had a recent outpatient stress test / echo which showed cardiomyopathy with EF of 13%. CXR showed mild to moderate congestion. She was seen by cardiology and started on iv lasix and milrinone drip. She was also on lisinopril. Her symptoms improved and lasix to po. Milrinone drip was discontinued. Cardiology recommended elective cardiac cath next week. She was seen by PT who recommended home with services. Patient is discharged home with family support. Follow up with cardiology for elective cath and possible AICD. Layo Nevarez MD Hospitalist.
[2018-03-21 18:10] VITALS: TEMP 97.9; O2SAT 97
[2018-03-21 18:12] VITALS: BP 128/76; PULSE 70; RESP 19
== END 2018-03-21 19:01 | disposition home health service (06) | DRG 292 ==
LOC: ED 02:57 → ERH 05:06 → 2RNO 05:50 → OBSVTOIN 10:47 → 3RSO 03-20 14:13
PROVIDERS: ADMIT Hospitalist; ATTEND Internal Medicine
DX: I50.23 Acute on chronic systolic (congestive) heart failure (principal); I42.0 Dilated cardiomyopathy; E11.9 Type 2 diabetes mellitus without complications; E78.00 Pure hypercholesterolemia, unspecified; E78.5 Hyperlipidemia, unspecified; E87.6 Hypokalemia; H40.9 Unspecified glaucoma; I44.7 Left bundle-branch block, unspecified; K21.9 Gastro-esophageal reflux disease without esophagitis; M81.0 Age-related osteoporosis without current pathological fracture; R94.39 Abnormal result of other cardiovascular function study; Z79.82 Long term (current) use of aspirin; Z79.899 Other long term (current) drug therapy; Z87.891 Personal history of nicotine dependence; Z90.710 Acquired absence of both cervix and uterus

== ENCOUNTER 2018-03-24 06:41 | Day surgery (SDC) | payer MEDICARE ==
[2018-03-23 10:16] VITALS: BMI 21.2
[2018-03-24] MEDS ORDERED: Iohexol 350mgl/ml 50 ML ONE (07:06)
[2018-03-24] MEDS ORDERED: Iodixanol 320 MG/ML 100 ML BOTTLE IV ONE ×2 (07:07→07:09)
[2018-03-24] MEDS ORDERED: Nitroglycerin 50mg in D5W 0 MG/0 ML BOTTLE IV ONE (07:07)
[2018-03-24] MEDS ORDERED: Iodixanol 320 mg/ml 150 ml Bottle IV ONE (07:08)
[2018-03-24] MEDS ORDERED: Phenylephrine 10 mg/ml Inj ONE (07:08)
[2018-03-24] MEDS ORDERED: Lidocaine 2% Inj (20ml) ONE (07:08)
[2018-03-24 07:50] LABS: BASO # 0.05 K/mm3 (0.0-2.0); BASO % 0.7 % (0.0-3.0); EOS # 0.4 (0.0-0.7); EOS % 5.7 % (1.5-5.0); GRAN # 4.5 (1.4-6.5); HEMOGLOBIN 13.3 g/dL (12.0-16.0); LYMPH # 1.8 (1.2-3.4); LYMPH % 23.5 % (22.0-35.0); MEAN CELL VOLUME 82.4 fl (80.0-105.0); MEAN CORPUSCULAR HEMOGLOBIN 26.9 pg (25.0-35.0); MEAN CORPUSCULAR HGB CONC 32.7 g/dl (31.0-37.0); MEAN PLATELET VOLUME 10.3 fl (7.0-11.0); MONO # 0.8 (0.1-0.6); MONO % 10.1 % (1.0-6.0); RBC 4.94 10^6/uL (3.5-6.1); WHITE BLOOD COUNT 7.5 10^3/ul (4.5-11.0)
[2018-03-24 07:56] VITALS: RESP 18
[2018-03-24 08:01] LABS: INR 1.11 (0.93-1.08); PARTIAL THROMBOPLASTIN TIME 30.3 Seconds (25.1-36.5); PROTHROMBIN TIME 12.8 SECONDS (9.4-12.5)
[2018-03-24 08:14] LABS: BLOOD UREA NITROGEN 23 mg/dL (7-21); CALCIUM 9.7 mg/dL (8.4-10.5); GFR AFRICAN-AMERICAN > 60; GFR NON-AFRICAN AMERICAN 59; HDL CHOLESTEROL 51 mg/dL (29-60); LDL CHOLESTEROL 106 mg/dL (0-129)
[2018-03-24] MEDS ORDERED: Midazolam 2 MG/2 ML VIAL ONE (09:08)
--- NOTE | 2018-03-24 10:16 | CARDCATH ---
PROCEDURE DATE: 03/24/2018 CARDIAC CATHETERIZATION HISTORY: The patient is a 88-year-old woman who presented with CHF and was found to have poor LV function. Her ejection fraction was measured to be 10%. She underwent treatment with IV dobutamine with improvement of her CHF symptoms. She returns with an abnormal stress test. Echocardiogram also revealed pulmonary hypertension. Because of this, a cardiac catheterization was recommended. PROCEDURE: Right and left heart catheterization with coronary arteriography, left ventriculogram, supra-aortic valvular injection as well as right heart pressure measurements. The right femoral artery was cannulated with 6-Cam[place]onian sheath. The right femoral vein was cannulated with a 7-[place] sheath. There were no complications. I performed moderate sedation, which included the presence of an independent trained observer that assisted in monitoring the patient's level of consciousness and physiologic status. After administration of Versed and fentanyl, my intra service time was 30 minutes. The findings on catheterization included right heart pressures, which revealed a right atrial mean pressure of 17 mmHg. RV pressure was 47/17 mmHg, pulmonary artery pressures were 45/20 mmHg, pulmonary capillary mean pressure was 23 mmHg. LVEDP was 22 mmHg. The findings on angiography revealed a left ventricle that diffusely dilated and diffusely hypokinetic with an estimated ejection fraction of 10-15%. Her coronary anatomy revealed a right dominant circulation. The RCA revealed diffuse atherosclerosis with a 70% stenosis in its proximal portion. The left main artery was unremarkable. The circumflex artery and obtuse marginal branches revealed diffuse atherosclerosis without critical lesions. The LAD revealed 70% stenosis in the midportion followed by a discrete 80% stenosis in the distal midportion. Manual compression used to close the femoral artery site. The patient tolerated the procedure well. In summary, the procedure revealed moderate pulmonary hypertension, severe left ventricular hypokinesis with an ejection fraction of approximately 10-15%. Two-vessel CAD. Given these findings, I will need to have an extensive discussion with the patient's family about possible home IV dobutamine as well as possible PTCA and stent once her CHF symptoms are stabilized. Malcolm Mason MD
[2018-03-24] MEDS ORDERED: Sodium Chloride 0.9% 1,000 ML IV SCH (11:00)
[2018-03-24 11:24] VITALS: TEMP 97.8
[2018-03-24 13:10] VITALS: O2SAT 94
[2018-03-24 13:19] VITALS: BP 104/42; PULSE 66
== END 2018-03-24 16:30 | disposition home or self-care (01) ==
LOC: CATH 06:41
PROVIDERS: ATTEND Internal Medicine Cardiovascular Disease
DX: I25.10 Atherosclerotic heart disease of native coronary artery without angina pectoris (principal); I50.9 Heart failure, unspecified; I27.20 Pulmonary hypertension, unspecified; R94.39 Abnormal result of other cardiovascular function study
CPT/HCPCS: 36415; 80048; 80061; 85025; 85610; 85730; 86850; 86900; 93460; 99152; C1769; C1894; C2629; J0583; J1644; J2250; J2405; J3010; J7030; J7040; Q9967 ×3